=== PATIENT | male | born 1960 | race Caucasian/White ===

== ENCOUNTER 2017-05-20 09:00 | Observation (INO) | payer OTHER ==
[2017-05-20] MEDS ORDERED: ONDANSETRON 4 MG/2 ML VIAL IVP ONE ×2 (09:29→10:26)
--- NOTE | 2017-05-20 09:32 | EDPHY ---
H & P Stated Complaint: N/V MANY EPISODES THIS LAST YR. SENT BY URGENT CARE FOR CT Time Seen by Provider: 05/20/17 09:19 HPI/ROS: CHIEF COMPLAINT: Nausea, vomiting HISTORY OF PRESENT ILLNESS: The patient presents to the ED with complaints of nausea and vomiting. He has been experiencing this intermittently over the past several months. He is not had any workup of this condition. The patient has a prior history of hernia repair. The patient complains of mild epigastric pain. The patient takes no regular medications. He reports sporadic alcohol use. He denies any tobacco or marijuana use. The patient denies melena. The patient denies additional acute complaints. REVIEW OF SYSTEMS: A comprehensive 10 point review of systems is otherwise negative aside from elements mentioned in the history of present illness. Source: Patient Exam Limitations: No limitations - Personal History Current Tetanus/Diphtheria Vaccine: No Current Tetanus Diphtheria and Acellular Pertussis (TDAP): No - Medical/Surgical History Hx Asthma: No Hx Chronic Respiratory Disease: No Hx Diabetes: No Hx Cardiac Disease: No Hx Renal Disease: No Hx Cirrhosis: No Hx Alcoholism: No Hx HIV/AIDS: No Hx Splenectomy or Spleen Trauma: No Other PMH: DENIES - Social History Smoking Status: Never smoked - Physical Exam Exam: General Appearance: Alert, no distress Eyes: Pupils equal and round no pallor or injection ENT, Mouth: Mucous membranes moist Respiratory: There are no retractions, lungs are clear to auscultation Cardiovascular: Regular rate and rhythm Gastrointestinal: Epigastric tenderness, mild distention, decreased bowel sounds Neurological: A&O, normal motor function, normal sensory exam, normal cranial nerves Skin: Warm and dry, no rashes Musculoskeletal: Neck is supple nontender Extremities: symmetrical, full range of motion Constitutional: Initial Vital Signs Temperature (C) 36.4 C 05/20/17 09:03 Heart Rate 53 L 05/20/17 09:03 Respiratory Rate 17 05/20/17 09:03 Blood Pressure 131/74 H 05/20/17 09:03 O2 Sat (%) 100 05/20/17 09:03 O2 Delivery Mode Room Air Allergies/Adverse Reactions: No Known Allergies Allergy (Unverified 05/20/17 09:03) Home Medications: Medication Instructions Recorded NK [No Known Home Meds] 05/20/17 Medical Decision Making - Diagnostics Imaging Results: Imaging Impressions Abdomen CT 05/20/17 10:21 Impression: 1. Cholelithiasis with possible cholecystitis causing bile duct dilatation. 2. Suspect pancreas divisum without evidence for pancreatitis. 3. Constipation. Results discussed with Dr. Sunny Russ at 11:18 AM. General information for patients regarding this examination can be found at [email or web address]. If you have questions or comments about this report, please contact me at (hospital) or [phone] ([facility]). Abdomen Ultrasound 05/20/17 11:18 Impression: 1. Cholelithiasis, with 2 nonmobile shadowing gallstones observed, one in the neck and one in the fundus. The gallbladder wall thickness is normal. 2. There is mild intra- and extrahepatic bile duct dilatation of unclear etiology. 3. Mild hepatomegaly. Findings were discussed with Alex Russ MD at 12:27, on 05/20/2017. ED Course/Re-evaluation: The patient presents to the ED for evaluation of acute epigastric pain and vomiting. The patient has had these symptoms occur intermittently over the past several months. The patient denies obvious precipitant to the attacks. In the emergency department the patient was noted to have mild epigastric and right upper quadrant pain and tenderness. Screening laboratory studies are unremarkable. Given the patient's history of intermittent abdominal pain and vomiting a CT scan of the abdomen pelvis was ordered which demonstrates evidence of cholelithiasis and mild extrahepatic ductal dilatation. I did follow up the CT scan with an ultrasound which demonstrates several immobile gallstones. I re-evaluated the patient at 12:30 p.m.. He continues to have ongoing pain and nausea. He has tenderness to deep palpation in the right upper quadrant. I consulted with Dr. Ashby from General surgery who will evaluate the patient in the emergency department. He will be admitted to the hospital for likely cholecystectomy. The patient was given 1 g of IV Invanz at 12:45 p.m. 1:20 p.m.: The patient was seen by Dr. Ashby in the emergency department. He will be admitted to the hospital for surgical intervention later today. Differential Diagnosis: Differential diagnosis considered includes cholelithiasis, cholecystitis, choledocholithiasis, pancreatitis - Data Points Laboratory Results: Laboratory Results 05/20/17 09:45 05/20/17 09:45 05/20/17 05/20/17 09:45 09:45 WBC 9.87 10^3/uL H 10^3/uL (3.80-9.50) RBC 5.20 10^6/uL 10^6/uL (4.40-6.38) Hgb 16.5 g/dL g/dL (13.7-17.5) Hct 45.7 % % (40.0-51.0) MCV 87.9 fL fL (81.5-99.8) MCH 31.7 pg pg (27.9-34.1) MCHC 36.1 g/dL g/dL (32.4-36.7) RDW 11.9 % % (11.5-15.2) Plt Count 345 10^3/uL 10^3/uL (150-400) MPV 9.2 fL fL (8.7-11.7) Neut % (Auto) 84.9 % H % (39.3-74.2) Lymph % (Auto) 10.2 % L % (15.0-45.0) [place] % (Auto) 4.3 % L % (4.5-13.0) Eos % (Auto) 0.0 % L % (0.6-7.6) Baso % (Auto) 0.2 % L % (0.3-1.7) Nucleat RBC Rel Count 0.0 % % (0.0-0.2) Absolute Neuts (auto) 8.38 10^3/uL H 10^3/uL (1.70-6.50) Absolute Lymphs (auto) 1.01 10^3/uL 10^3/uL (1.00-3.00) Absolute Monos (auto) 0.42 10^3/uL 10^3/uL (0.30-0.80) Absolute Eos (auto) 0.00 10^3/uL L 10^3/uL (0.03-0.40) Absolute Basos (auto) 0.02 10^3/uL 10^3/uL (0.02-0.10) Absolute Nucleated RBC 0.00 10^3/uL 10^3/uL (0-0.01) Immature Gran % 0.4 % % (0.0-1.1) Immature Gran # 0.04 10^3/uL 10^3/uL (0.00-0.10) Sodium 145 mEq/L mEq/L (135-145) Potassium 4.3 mEq/L mEq/L (3.5-5.2) Chloride 105 mEq/L mEq/L (97-110) Carbon Dioxide 23 mEq/l mEq/l (22-31) Anion Gap 17 mEq/L H mEq/L (8-16) BUN 10 mg/dL mg/dL (7-23) Creatinine 0.8 mg/dL mg/dL (0.7-1.3) Estimated GFR > 60 Glucose 127 mg/dL H mg/dL (70-100) Calcium 10.2 mg/dL mg/dL (8.5-10.4) Total Bilirubin 1.0 mg/dL mg/dL (0.1-1.4) Conjugated Bilirubin 0.2 mg/dL mg/dL (0.0-0.5) Unconjugated Bilirubin 0.8 mg/dL mg/dL (0.0-1.1) AST 30 IU/L IU/L (17-59) ALT 47 IU/L IU/L (21-72) Alkaline Phosphatase 61 IU/L IU/L (38-126) Total Protein 7.8 g/dL g/dL (6.3-8.2) Albumin 4.8 g/dL g/dL (3.5-5.0) Lipase 201 IU/L IU/L (23-300) Medications Given: Discontinued Medications Sodium Chloride (Ns) 1,000 mls @ 0 mls/hr IV ONCE ONE; Wide Open PRN Reason: Protocol Stop: 05/20/17 09:34 Last Admin: 05/20/17 09:45 Dose: 1,000 mls Ondansetron HCl (Zofran) 4 mg IVP EDNOW ONE Stop: 05/20/17 09:30 Last Admin: 05/20/17 09:45 Dose: 4 mg Ondansetron HCl (Zofran) 4 mg IVP EDNOW ONE Stop: 05/20/17 10:27 Last Admin: 05/20/17 10:27 Dose: 4 mg Departure - Departure Disposition: [facility] Acute Clinical Impression: Acute cholecystitis Condition: Good
[2017-05-20] MEDS ORDERED: NS 1,000 ML IV ONE (09:33)
[2017-05-20 09:56] LABS: PLATELET COUNT 345 10^3/uL (150-400)
[2017-05-20] MEDS ORDERED: ONDANSETRON 4 MG/2 ML VIAL ONE ×2 (10:22→17:19)
[2017-05-20] MEDS ORDERED: IOPAMIDOL (ISOVUE-300) 100 ML BTL ONE (10:43)
[2017-05-20] MEDS ORDERED: ERTAPENEM 1 GM VIAL IVP ONE (12:46)
[2017-05-20] MEDS ORDERED: oxyCODONE IR 5 MG TAB PO PRN (14:14)
[2017-05-20] MEDS ORDERED: METOCLOPRAMIDE 10 MG/2 ML VIAL IVP PRN ×2 (14:14→17:15)
[2017-05-20] MEDS ORDERED: LR 1,000 ML IV SCH (14:30)
[2017-05-20] MEDS ORDERED: LIDOCAINE 1% 300 MG/30 ML SDV ONE (16:05)
[2017-05-20] MEDS ORDERED: BUPIVACAINE 0.5% 30 ML SDV ONE (16:06)
--- NOTE | 2017-05-20 16:14 | PDCONSULT ---
Industrial Maintenance Repairer Helper Note: Consultation at the request of Dr. 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 Usually these were self-limiting until last evening. He was able to tolerate food and then several hours later had crippling right upper quadrant abdominal pain associated with profuse nausea and vomiting. The nausea and vomited not telly until after eating greasy medication here in the hospital. Pain was 78/10. Multiple previous episodes similar to this but self-limiting. Denies acholic stools, dark urine or other signs of biliary obstruction. This is 1st evaluation for this problem. CT scan and ultrasound in the emergency room demonstrated signs of cholecystitis. No elevation in transaminases, alkaline phosphatase are bilirubin. Past medical history: None Past surgical history: Inguinal hernia surgery at 2 years old Medications: None No known drug allergies Review of systems significant for recurrent right upper quadrant abdominal pain otherwise reviewed and all others are negative. Family history: Significant for colon cancer in maternal grandmother, stroke and heart disease in grandfathers. Denies illicit drug use denies tobacco use Alert oriented x3 Sclerae anicteric Trachea midline, no JVD, no supraclavicular cervical adenopathy Regular rate and rhythm Clear to auscultation bilaterally Abdomen soft nontender nondistended no Flor sign 2+ over 2+ femoral radial and dorsalis pedis pulses No edema No skin rashes Normal skin turgor and tone Normal affect 05/20/17 09:45 05/20/17 09:45 Total Bilirubin 1.0 mg/dL (0.1-1.4) 05/20/17 09:45 Conjugated Bilirubin 0.2 mg/dL (0.0-0.5) 05/20/17 09:45 Unconjugated Bilirubin 0.8 mg/dL (0.0-1.1) 05/20/17 09:45 AST 30 IU/L (17-59) 05/20/17 09:45 ALT 47 IU/L (21-72) 05/20/17 09:[address] 05/20/17 10:21 Impression: 1. Cholelithiasis with possible cholecystitis causing bile duct dilatation. 2. Suspect pancreas divisum without evidence for pancreatitis. 3. Constipation. Results discussed with Dr. Sunny Russ at 11:18 AM. General information for patients regarding this examination can be found at [email or web address]. If you have questions or comments about this report, please contact me at [phone] (hospital) or [phone] (cell). Abdomen Ultrasound 05/20/17 11:18 Impression: 1. Cholelithiasis, with 2 nonmobile shadowing gallstones observed, one in the neck and one in the fundus. The gallbladder wall thickness is normal. 2. There is mild intra- and extrahepatic bile duct dilatation of unclear etiology. 3. Mild hepatomegaly. Findings were discussed with Alex Russ MD at 12:27, on 05/20/2017. Impression/plan: Calculous cholecystitis Admit for observation in the hospital. Discussed the risks benefits and alternatives to laparoscopic cholecystectomy including but not limited to bleeding, infection, injury to biliary structures that could require further intervention. Risk of open conversion and need for further intervention such as ERCP. Verbal confirmation of understanding prior to obtaining written consent. All questions were addressed. Laparoscopic cholecystectomy NPO IV fluids Pain control with Toradol and intermittent narcotic medication Anticipate less than 24 hour stay in the hospital
[2017-05-20] MEDS ORDERED: MIDAZOLAM 2 MG/2 ML VIAL ONE (16:44)
[2017-05-20] MEDS ORDERED: fentaNYL 100 MCG/2 ML INJ ONE (16:44)
[2017-05-20] MEDS ORDERED: PROPOFOL/EMULSION 500 MG/50 ML BOTTLE IV ONE (16:44)
--- NOTE | 2017-05-20 17:14 | PDANEPAE ---
ANE Past Medical History - Pulmonary History Hx Oxygen in Use at Home: No Hx Sleep Apnea: No Sleep Apnea Screening Result - Last Documented: Negative - Endocrine History Hx Diabetes: No ANE Review of Systems Review of Systems: ANE Patient History - Allergies Allergies/Adverse Reactions: No Known Allergies Allergy (Unverified 05/20/17 09:03) - Home Medications Home Medications: NK [No Known Home Meds] 05/20/17 [Last Taken Unknown] - NPO status NPO Since - Liquids (Date): 05/20/17 NPO Since - Liquids (Time): 08:00 NPO Since - Solids (Date): 05/20/17 NPO Since - Solids (Time): 08:00 - Smoking Hx Smoking Status: Never smoked ANE Labs/Vital Signs - Labs Result Diagrams: 05/20/17 09:45 05/20/17 09:45 - Vital Signs Blood Pressure: 123/72 Heart Rate: 57 Respiratory Rate: 15 O2 Sat (%): 100 Height: 182.88 cm Weight: 80.3 kg ANE Physical Exam - Airway Neck exam: FROM Mallampati Score: Class 1 Mouth exam: normal dental/mouth exam - Pulmonary Pulmonary: no respiratory distress, no rales or rhonchi, clear to auscultation - Cardiovascular Cardiovascular: regular rate and rhythym, no murmur, rub, or gallop - ASA Status ASA Status: I ANE Anesthesia Plan Anesthesia Plan: general endotracheal anesthesia
[2017-05-20] MEDS ORDERED: DEXAMETHASONE 4 MG/ML VIAL IVP PRN (17:15)
[2017-05-20] MEDS ORDERED: ONDANSETRON 4 MG/2 ML VIAL IVP PRN (17:15)
[2017-05-20] MEDS ORDERED: MEPERIDINE 25 MG/ML SYR IVP PRN (17:15)
[2017-05-20] MEDS ORDERED: ALBUTEROL 3 ML DEYVIAL IH PRN (17:15)
[2017-05-20] MEDS ORDERED: fentaNYL 100 MCG/2 ML INJ IVP PRN (17:15)
[2017-05-20] MEDS ORDERED: HYDROCODONE/APAP 5/325 TAB PO PRN (17:15)
[2017-05-20] MEDS ORDERED: PROMETHAZINE HCL 25 MG/ML INJ IVP PRN (17:15)
[2017-05-20] MEDS ORDERED: ACETAMINOPHEN 500 MG TAB PO PRN (17:15)
[2017-05-20] MEDS ORDERED: LR 500 ML IV PRN (17:15)
[2017-05-20] MEDS ORDERED: NALOXONE HCL 0.4 MG/ML INJ IVP PRN (17:15)
[2017-05-20] MEDS ORDERED: DEXAMETHASONE 4 MG/ML VIAL ONE (17:19)
[2017-05-20] MEDS ORDERED: METOCLOPRAMIDE 10 MG/2 ML VIAL ONE (17:19)
[2017-05-20] MEDS ORDERED: RANITIDINE 50 MG/2 ML VIAL ONE (17:19)
[2017-05-20] MEDS ORDERED: SUGAMMADEX SODIUM 200 MG/2 ML VIAL IVP ONE (17:19)
[2017-05-20] MEDS ORDERED: ROCURONIUM 50 MG/5 ML VIAL ONE (17:19)
[2017-05-20] MEDS ORDERED: KETOROLAC 30 MG/1 ML SDV ONE (17:19)
[2017-05-20] MEDS ORDERED: LIDOCAINE 2% 5 ML SDV ONE (17:19)
[2017-05-20] MEDS: KETOROLAC 15 MG/1 ML SDV IVP SCH ×2 (18:19→23:39)
--- NOTE | 2017-05-20 18:24 | POSTOPPROG ---
Post Op Note Date of Operation: 05/20/17 Surgeon: Paul Ashby Anesthesiologist: Luis E Anesthesia: GET(General Endotracheal) Pre-op Diagnosis: Acute cholecystitis with stones Post-op Diagnosis: Same Procedure: Laparoscopic cholecystectomy Findings: Impacted stones Inf/Abcess present in the surg proc area at time of surgery?: No EBL: Minimal Complications: None Specimen(s): Gallbladder to permanent pathology
--- NOTE | 2017-05-20 18:33 | SUROPNOTE ---
[facility] Operative Report - Surgery Date of surgery: 05/20/2017 Preop diagnosis: Acute calculous cholecystitis Postop diagnosis: Same Procedure: Laparoscopic cholecystectomy Surgeon:Paul Ashyb MD Anesthesiologist:Yadira Kimbrough MD General endotracheal anesthesia Specimen: Gallbladder to permanent pathology EBL 20 mL Fluid given 1 L crystalloid Complications: None Indications: This is a 56-year-old gentleman with multiple episodes of biliary colic presents with intractable pain. Patient had CT scan and ultrasound which confirmed diagnosis of acute cholecystitis. After informed consent was obtained the patient was brought down for urgent cholecystectomy. Procedure: The patient was brought to the operating room after induction of endotracheal anesthesia in supine position his abdomen is prepped chlorhexidine and draped sterilely. Time-out procedure was then performed according institutional standards. Local anesthetic is infused in skin and subcutaneous tissues of the trocar sites. Open supraumbilical trocar placement is performed and the abdomen is insufflated to 15 torr with carbon dioxide working trocars and then placed in the subxiphoid and right subcostal areas under direct visualization. The patient is placed in head up with a left down tilt position to facilitate surgery. His gallbladder appeared somewhat contracted with inflammatory tissue suggestive of recurrent disease. Two stones were noted in the fundus and infundibulum which were fixed in place. The peritoneum was dissected from the medial lateral aspect of the gallbladder and a top-down approach was then made as the triangle of CHARLY could not clearly be dissected out. The cystic duct and cystic artery were then identified at the base of the gallbladder triply clipped and ligated hemostasis was assured. The gallbladder was placed into an endo-pouch and brought out through the umbilical incision which had to be widened slightly to accommodate the size of the stones. After ensuring hemostasis was complete working trocars were removed the abdomen was deflated the fascia was closed at the level of the umbilicus and all 4 ports were reapproximated at the skin level using 4 Monocryl Dermabond was applied the patient was awakened extubated and taken to the recovery room in stable condition no immediate complications. Needle instrument and sponge counts were verified to be correct x2
[2017-05-20 20:12] VITALS: RESP 16
[2017-05-21 04:43] VITALS: O2SAT 95
[2017-05-21] MEDS: KETOROLAC 15 MG/1 ML SDV IVP SCH (05:56)
[2017-05-21 08:27] VITALS: BP 101/66; PULSE 61; TEMP 98.7
--- NOTE | 2017-05-21 11:57 | ASDISCHSUM ---
Discharge Information Plan Status:Home with No Needs Medically Cleared to Leave:05/20/2017 Discharge Date:05/21/2017 10:06 AM CM D/C Disposition:Home, Routine, Self-Care ADT D/C Disposition:Home, Routine, Self-Care Projected Discharge Date:05/21/2017 10:06 AM Transportation at D/C:Family Discharge Delay Reason: Follow-Up Date:05/21/2017 10:06 AM Discharge Slot: Final Diagnosis: Placement Information Patient Contact Information Contact Name:BUFFY Relationship: Address: Work Phone: City: [facility] Phone: [facility] [facility] Code: Email: Financial Information Financial Class:HMO and PPO Plans Primary Plan Desc:[employer] Primary Plan Number:[id number] Secondary Plan Desc: Secondary Plan Number: Assessment Information Case Management Discharge Plan Note Case Management Discharge Discharge Order Complete? Answers: Yes Patient to Obtain Answers: via Family Medications Transportation Arranged Answers: Family/Friends Family Notified Answers: Yes Discharge Comments Notes: Pt s/p kevin jean. Discharging home today with his and no CM needs. Date Signed: 05/21/2017 11:52 AM Electronically Signed By:ELIANA Anton LACE LACE Length of stay for Answers: Less than 1 day current admission Acuity / Level of Answers: No Care: Did the patient have an inpatient admission? # of Emergency department Answers: 1-2 visits in the last 6 months Score: 1 Date Signed: 05/21/2017 11:55 AM Electronically Signed By:ELIANA Anton Intervention Information
== END 2017-05-21 10:06 | disposition home or self-care (01) ==
LOC: F3E 14:02
PROVIDERS: ADMIT Surgery; ATTEND Surgery
PROC: 0FT44ZZ Resection of Gallbladder, Percutaneous Endoscopic Approach (ICD-10-PCS; principal; 2017-05-20 17:00)
DX: K80.00 Calculus of gallbladder with acute cholecystitis without obstruction (principal); K59.00 Constipation, unspecified; R16.0 Hepatomegaly, not elsewhere classified
CPT/HCPCS: 47562; 74177; 76705; 96374; 96375; 96376; 99285; G0378; J1100; J1335; J1885; J2250; J2405; J2704; J2765; J2780; J3010; Q9967